=== PATIENT | female | born 1955 | race Caucasian/White ===

== ENCOUNTER 2017-08-24 09:41 | Emergency (ER) | payer OTHER ==
[~2017-08-24] VITALS: Ht 162.6 cm; Wt 71.6 kg
[~2017-08-24 09:41] MED LIST: ESTR1TAB4 PO
[2017-08-24 09:43] VITALS: BP 139/78
[2017-08-24 10:48] LABS: HEMATOCRIT 48.7 % (34.6-47.8); HEMOGLOBIN 16.5 g/dL (11.7-16.4); WHITE BLOOD COUNT 13.7 x10^3/uL (3.4-10)
[2017-08-24 10:59] LABS: ASPARTATE AMINO TRANSFERASE 12 U/L (15-37); BLOOD UREA NITROGEN 14 mg/dL (7-18)
== END 2017-08-24 11:53 | disposition home or self-care (01) ==
LOC: ED 11:47
DX: K57.92 Diverticulitis of intestine, part unspecified, without perforation or abscess without bleeding (principal)
CPT/HCPCS: 36415; 80053; 85025; 85610; 85730; 99284